=== PATIENT | male | born 1995 | race African-American/Black ===

== ENCOUNTER 2018-01-25 19:35 | Emergency (ER) | payer BC, OTHER ==
[~2018-01-25] VITALS: Ht 185.4 cm; Wt 158.8 kg
== END 2018-01-25 21:24 | disposition home or self-care (01) ==
LOC: FSED 19:35
DX: S20.211A Contusion of right front wall of thorax, initial encounter (principal); V47.5XXA Car driver injured in collision with fixed or stationary object in traffic accident, initial encounter; Y92.488 Other paved roadways as the place of occurrence of the external cause; I10 Essential (primary) hypertension
CPT/HCPCS: 71101; 99283

== ENCOUNTER 2018-07-13 12:47 | Emergency (ER) | payer OTHER ==
[~2018-07-13] VITALS: Ht 185.4 cm; Wt 158.8 kg
[2018-07-13] MEDS ORDERED: HYDRALAZINE HCL 20 MG/ML VIAL IV STA (13:10)
[2018-07-13 13:50] LABS: BASOPHILS % 0.4 % (0.0-1.0); EOSINOPHILS # (AUTO) 0.1 (0.0-0.4); EOSINOPHILS % 1.3 % (0.0-6.0); HEMATOCRIT 45.8 % (38.2-49.6); HEMOGLOBIN 15.6 g/dL (14.0-18.0); LYMPHOCYTES # (AUTO) 2.2 (1.0-3.2); LYMPHOCYTES % 26.7 % (18.0-39.1); MEAN CORPUSCULAR HEMOGLOBIN 30.1 pg (28-32); MEAN CORPUSCULAR HGB CONC 34.1 g/dL (31-35); MEAN CORPUSCULAR VOLUME 88.4 fL (81-99); MONOCYTES # (AUTO) 0.6 (0.2-0.8); MONOCYTES % 7.5 % (4.4-11.3); NEUTROPHILS # (AUTO) 5.2 (2.1-6.9); NEUTROPHILS % 63.7 % (38.7-80.0); PLATELET COUNT 281 x10e3/uL (140-360); RED BLOOD COUNT 5.18 x10e6/uL (4.3-5.7); RED CELL DISTRIBUTION WIDTH 12.9 % (11.7-14.4)
[2018-07-13 14:03] LABS: ALANINE AMINOTRANSFERASE 18 IU/L (0-55); ALBUMIN 4.5 g/dL (3.5-5.0); ALBUMIN/GLOBULIN RATIO 1.7 (0.8-2.0); ALKALINE PHOSPHATASE 54 IU/L (40-150); ANION GAP 15.2 mmol/L (8-16); BLOOD UREA NITROGEN 14 mg/dL (7-26); BUN/CREATININE RATIO 11 (6-25); CALCIUM 9.6 mg/dL (8.4-10.2); CARBON DIOXIDE 25 mmol/L (22-29); CHLORIDE 100 mmol/L (98-107); CREATINE KINASE 308 IU/L (30-200); CREATININE, SERUM 1.25 mg/dL (0.72-1.25); EST GLOMERULAR FILTRATION RATE > 60 ML/MIN (60-); GLUCOSE 90 mg/dL (74-118); POTASSIUM 4.2 mmol/L (3.5-5.1); SODIUM 136 mmol/L (136-145)
[2018-07-13] MEDS ORDERED: HYDROCHLOROTHIA25 MG PO (14:24)
--- NOTE | 2018-07-13 15:02 | Diagnostic Imaging Report ---
Examination: Single AP view of the chest. COMPARISON: None. INDICATION: Chest pain DISCUSSION: Lines/tubes: None. Lungs: The lungs are well inflated and clear. There is no evidence of pneumonia or pulmonary edema. Pleura: There is no pleural effusion or pneumothorax. Heart and mediastinum: The heart and the mediastinum are unremarkable for portable, AP technique. Bones and soft tissues: No acute bony abnormalities. IMPRESSION: 1. No acute cardiopulmonary abnormalities. Signed by: Dr. Washington Monroe M.D. on 07/13/2018 2:58 PM
[2018-07-13 15:12] VITALS: BP 123/90
== END 2018-07-13 15:25 | disposition home or self-care (01) ==
LOC: ER 12:47
DX: R07.89 Other chest pain (principal)
CPT/HCPCS: 36415; 71045; 80053; 82550; 82553; 84484; 85025; 93005; 99284; J0360

== ENCOUNTER 2019-06-19 16:51 | Emergency (ER) | payer SELFPAY ==
[~2019-06-19] VITALS: Ht 185.4 cm; Wt 158.8 kg
[~2019-06-19 16:51] MED LIST: HYDROCHLOROTHIA25 MG PO
[2019-06-19 18:02] LABS: BASOPHILS % 0.1 % (0.0-1.0); EOSINOPHILS # (AUTO) 0.2 (0.0-0.4); EOSINOPHILS % 2.1 % (0.0-6.0); HEMATOCRIT 46.8 % (38.2-49.6); HEMOGLOBIN 16.2 g/dL (14.0-18.0); LYMPHOCYTES # (AUTO) 2.5 (1.0-3.2); LYMPHOCYTES % 31.9 % (18.0-39.1); MEAN CORPUSCULAR HEMOGLOBIN 30.3 pg (28-32); MEAN CORPUSCULAR HGB CONC 34.6 g/dL (31-35); MEAN CORPUSCULAR VOLUME 87.5 fL (81-99); MONOCYTES # (AUTO) 0.6 (0.2-0.8); MONOCYTES % 7.4 % (4.4-11.3); NEUTROPHILS # (AUTO) 4.6 (2.1-6.9); NEUTROPHILS % 58.2 % (38.7-80.0); PLATELET COUNT 265 x10e3/uL (140-360); RED BLOOD COUNT 5.35 x10e6/uL (4.3-5.7); RED CELL DISTRIBUTION WIDTH 12.6 % (11.7-14.4)
[2019-06-19 18:13] LABS: ALANINE AMINOTRANSFERASE 21 IU/L (0-55); ALBUMIN 4.4 g/dL (3.5-5.0); ALBUMIN/GLOBULIN RATIO 1.4 (0.8-2.0); ALKALINE PHOSPHATASE 51 IU/L (40-150); ANION GAP 15.1 mmol/L (8-16); BLOOD UREA NITROGEN 14 mg/dL (7-26); BUN/CREATININE RATIO 11 (6-25); CALCIUM 9.9 mg/dL (8.4-10.2); CARBON DIOXIDE 24 mmol/L (22-29); CHLORIDE 102 mmol/L (98-107); CREATINE KINASE 416 IU/L (30-200); CREATININE, SERUM 1.23 mg/dL (0.72-1.25); EST GLOMERULAR FILTRATION RATE > 60 ML/MIN (60-); GLUCOSE 96 mg/dL (74-118); POTASSIUM 4.1 mmol/L (3.5-5.1); SODIUM 137 mmol/L (136-145)
[2019-06-19] MEDS ORDERED: LISINOPRIL 20 MG TAB PO NR (18:30)
--- NOTE | 2019-06-19 19:09 | Diagnostic Imaging Report ---
EXAMINATION: CHEST 2 VIEWS INDICATION: ^HTN ^[id number] ^[id number] COMPARISON: 07/13/2018. FINDINGS: TUBES and LINES: None. LUNGS: Lungs are well inflated. Lungs are clear. There is no evidence of pneumonia or pulmonary edema. PLEURA: No pleural effusion or pneumothorax. HEART AND MEDIASTINUM: The cardiomediastinal silhouette is unremarkable. BONES AND SOFT TISSUES: No acute osseous lesion. UPPER ABDOMEN: No free air under the diaphragm. IMPRESSION: No acute thoracic abnormality. Signed by: Dr. Jammie Pepper M.D. on 06/19/2019 7:06 PM
[2019-06-19 19:41] LABS: CLARITY,URINE SL CLOUDY (CLEAR); COLOR,URINE YELLOW (YELLOW)
[2019-06-19 19:42] LABS: BILIRUBIN,URINE NEGATIVE (NEGATIVE); KETONES,URINE NEGATIVE (NEGATIVE); LEUKOCYTE ESTERASE ,URINE NEGATIVE (NEGATIVE); NITRITE,URINE NEGATIVE (NEGATIVE); PROTEIN,URINE DIPSTICK NEGATIVE (NEGATIVE); URINE UROBILINOGEN 0.2 mg/dL (0.2 - 1)
[2019-06-19 20:06] LABS: BACTERIA,URINE FEW /HPF
[2019-06-19 20:07] LABS: AMORPHOUS SEDIMENT,URINE MODERATE (FEW); EPITHELIAL CELLS,URINE FEW /LPF; HYALINE CASTS 0-1 (0-1)
[2019-06-19 20:26] VITALS: BP 159/105
--- OUTSIDE RECORDS SUMMARY | 2019-06-22 13:48 | XMS REPORT ---
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 Allergies, Adverse Reactions, Alerts This patient has no known allergies or adverse reactions. Medications This patient has no known medications. Results Test Description Test Time Test Comments Text Results Atomic Results Result Comments CHEST 2 VIEWS 2019-06-19 18:44:00 [facility] [address] [address] Patient Name: GEOFF HUNT MR #: [id number] : 1995 Age/Sex: 24/M Req #: [id number] [facility] Physician: Ordered by: ANTONY ROMO MD, MD Report #: [id number] Location: ER Room/Bed: Procedure: [id number] DX/CHEST 2 VIEWS Exam Date: 06/19/19 Exam Time: 1835 REPORT STATUS: Signed EXAMINATION: CHEST 2 VIEWS INDICATION: HTN [id number] COMPARISON: 07/13/2018. FINDINGS: TUBES and LINES: None. LUNGS: Lungs are well inflated. Lungs are clear. There is no evidence of pneumonia or pulmonary edema. PLEURA: No pleural effusion or pneumothorax. HEART AND MEDIASTINUM: The cardiomediastinal silhouette is unremarkable. BONES AND SOFT TISSUES: No acute osseous lesion. UPPER ABDOMEN: No free air under the diaphragm. IMPRESSION: No acute thoracic abnormality. Signed by: Dr. Jammie Doss M.D. on 06/19/2019 7:06 PM Dictated By: SHIRLEY DOSS MD, MD 05 Transcribed By: JUAN on 06/19/191905 COPY TO: ANTONY ROMO CHEST SINGLE (PORTABLE) 2018-07-13 14:56:[address] [address] Patient Name: GEOFF HUNT MR #: [id number] : 1995 Age/Sex: 23/M Req #: [id number] Adm Physician: Ordered by: VITALIY MAGDALENO MD Report #: [id number] Location: ER Room/Bed: Procedure: [id number] DX/CHEST SINGLE (PORTABLE) Exam Date: Exam Time: REPORT STATUS: Signed Examination: Single AP view of the chest. COMPARISON: N one. INDICATION: Chest pain DISCUSSION: Lines/tubes: None. Lungs: The lungs are well inflated and clear. There is no evidence of pneumonia or pulmonary edema. Pleura: There is no pleural effusion or pneumothorax. Heart and mediastinum: The heart and the mediastinum are unremarkable for portable, AP technique. Bones and soft tissues: No acute bony abnormalities. IMPRESSION: 1. No acute cardiopulmonary abnormalities. Signed by: Dr. Lakisha Ignacio M.D. on 07/13/2018 2:58 PM Dictated By: LAKISHA IGNACIO MD [id number] Transcribed By: JUAN on 07/13/18 145 COPY TO: VITALIY MAGDALENO MD
== END 2019-06-19 20:33 | disposition home or self-care (01) ==
LOC: ER 16:51
DX: I10 Essential (primary) hypertension (principal)
CPT/HCPCS: 36415; 71046; 80053; 81001; 82550; 82553; 84484; 85025; 93005; 99284

== ENCOUNTER 2020-01-18 09:18 | Emergency (ER) | payer BC, OTHER ==
[~2020-01-18] VITALS: Ht 185.4 cm; Wt 161.5 kg
[2020-01-18] MEDS ORDERED: CLONIDINE HCL 0.1 MG TAB PO ONE (09:45)
[2020-01-18] MEDS ORDERED: HYDRALAZINE HCL 20 MG/ML VIAL IV STA (11:06)
--- NOTE | 2020-01-18 11:22 | Emergency Department Note ---
History of Present Illnes History of Present Illness Chief Complaint: Hypertension History of Present Illness This is a 24 year old male Chief Complaint Comment pt seen by PCP this AM and sent to ER for high BP, pt denies CP<SOB, states he ran out of BP meds 5 years ago and never went back to PCP for more, . Historian: Patient Arrival Mode: Car Onset (how long ago): day(s) (2) Location: ALL OVER Quality: WEAKNESS Radiation: Denies non-radiation, Denies back, Denies neck, Denies extremity, Denies abdomen, Denies periumbilical, Denies flank, Denies proximal, Denies distal, Denies other Severity: moderate Onset quality: gradual Duration (how long): day(s) (2) Timing of current episode: intermittent Progression: waxing and waning Chronicity: new Context: Denies recent illness, Denies recent surgery, Denies recent immobilization, Denies recent travel, Denies trauma/injury, Denies new medications, Denies hx of DVT/PE, Denies non-compliance w/ medications, Denies other Relieving factors: none Exacerbating factors: none Associated symptoms: Denies denies other symptoms, Denies confusion, Denies chest pain, Denies cough, Denies diaphoresis, Denies fever/chills, Denies headaches, Denies loss of appetite, Denies malaise, Denies nausea/vomiting, Denies rash, Denies seizure, Denies shortness of breath, Denies syncope, Denies weakness, Denies other Treatments prior to arrival: none Past Medical/Family History Physician Review I have reviewed the patient's past medical and family history. Any updates have been documented here. Past Medical History Recent Fever: No Clinical Suspicion of Infectio: No New/Unexplained Change in Ment: No Past Medical History: Hypertension Other Medical History: UNTREATED (PER PT) HTN Past Surgical History: None Social History Smoking Cessation: Never Smoker Counseling Performed: No Alcohol Use: Occasional Any Illegal Drug Use: No Physically hurt or threatened: No Other Last Tetanus: UTD Any Pre-Existing Lines (PICC,: No Review of Systems Review of Systems Constitutional: Reports no symptoms EENTM: Reports no symptoms Cardiovascular: Reports no symptoms Respiratory: Reports no symptoms Gastrointestinal: Reports no symptoms Genitourinary: Reports no symptoms Musculoskeletal: Reports no symptoms Integumentary: Reports no symptoms Neurological: Reports no symptoms Psychological: Reports no symptoms Endocrine: Reports no symptoms Hematological/Lymphatic: Reports no symptoms Physical Exam Related Data Allergies: Coded Allergies: No Known Allergies (Unverified , 01/25/18) Triage Vital Signs Vital Signs Date Time Temp Pulse Resp B/P (MAP) Pulse Ox O2 Delivery O2 Flow Rate FiO2 01/18/20 09:25 99.0 95 18 213/135 99 Vital signs reviewed: Yes Physical Exam CONSTITUTIONAL Constitutional: Present well-developed, Present well-nourished HENT HENT: Present normocephalic, Present atraumatic, Present oropharynx clear/moist, Present nose normal HENT L/R: Present left ext ear normal, Present right ext ear normal EYES Eyes: Reports PERRL, Reports conjunctivae normal NECK Neck: Present ROM normal PULMONARY Pulmonary: Present effort normal, Present breath sounds normal CARDIOVASCULAR Cardiovascular: Present regular rhythm, Present heart sounds normal, Present capillary refill normal, Present normal rate GASTROINTESTINAL Abdominal: Present soft, Present nontender, Present bowel sounds normal GENITOURINARY Genitourinary: Present exam deferred SKIN Skin: Present warm, Present dry MUSCULOSKELETAL Musculoskeletal: Present ROM normal NEUROLOGICAL Neurological: Present alert, Present oriented x 3, Present no gross motor or sensory deficits PSYCHOLOGICAL Psychological: Present mood/affect normal, Present judgement normal Assessment & Plan Medical Decision Making MDM HYPERTENSION WEAKNESS Reassessment Reassessment time: 11:20 Reassessment BETTER Assessment & Plan Final Impression: (1) Hypertensive crisis Depart Disposition: HOME, SELF-CARE Last Vital Signs Date Time Temp Pulse Resp B/P (MAP) Pulse Ox O2 Delivery O2 Flow Rate FiO2 01/18/20 11:11 167/112 01/18/20 09:45 89 18 99 01/18/20 09:25 99.0 Home Meds Active Scripts Hydrochlorothiazide (HYDROCHLOROTHIAZIDE) 25 Mg Tablet, 25 MG PO DAILY for 30 Days, #30 TAB Prov:VITALIY WATSON DO 07/13/18 Medications in the ED Clonidine HCl 0.1 mg ONCE ONCE PO Last administered on 01/18/20at 10:04; Admin Dose 0.1 MG; Start 01/18/20 at 09:45; Stop 01/18/20 at 10:06; Status DC Hydralazine HCl 10 mg NOW STAT IV Last administered on 01/18/20at 11:11; Admin Dose 10 MG; Start 01/18/20 at 11:06; Stop 01/18/20 at 11:08; Status DC KERI HOWARD MD Jan 18, 2020 11:22
[2020-01-18] MEDS ORDERED: LISINOPRIL10 MG PO (11:23)
[2020-01-18 11:45] VITALS: BP 151/101
== END 2020-01-18 11:47 | disposition home or self-care (01) ==
LOC: FSED 09:31
DX: I16.9 Hypertensive crisis, unspecified (principal); I10 Essential (primary) hypertension; R53.1 Weakness
CPT/HCPCS: 80048; 80076; 85025; 99283; J0360

== ENCOUNTER 2020-04-02 22:50 | Emergency (ER) | payer BC ==
[~2020-04-02] VITALS: Ht 185.4 cm; Wt 161.5 kg
[~2020-04-02 22:50] MED LIST changes: +LISINOPRIL10 MG PO
[2020-04-02] MEDS ORDERED: ALBUTEROL SULF 0.083% NEB SOLN 3 ML NEB NEB STA (22:51)
[2020-04-02] MEDS ORDERED: METHYLPREDNISOLONE SOD SUCC 125 MG/2ML VIAL IV ONE (23:00)
[2020-04-02] MEDS ORDERED: IPRATROPIUM BROMIDE 0.02% 2.5 ML NEB NEB ONE (23:00)
[2020-04-02 23:03] LABS: BASOPHILS % 0.3 % (0.0-1.0); EOSINOPHILS # (AUTO) 0.5 (0.0-0.4); EOSINOPHILS % 3.8 % (0.0-6.0); HEMATOCRIT 42.6 % (38.2-49.6); HEMOGLOBIN 14.2 g/dL (14.0-18.0); LYMPHOCYTES # (AUTO) 2.6 (1.0-3.2); LYMPHOCYTES % 19.7 % (18.0-39.1); MEAN CORPUSCULAR HEMOGLOBIN 29.3 pg (28-32); MEAN CORPUSCULAR HGB CONC 33.3 g/dL (31-35); MEAN CORPUSCULAR VOLUME 87.8 fL (81-99); MONOCYTES # (AUTO) 0.9 (0.2-0.8); NEUTROPHILS # (AUTO) 9.2 (2.1-6.9); NEUTROPHILS % 68.7 % (38.7-80.0); PLATELET COUNT 295 x10e3/uL (140-360); RED BLOOD COUNT 4.85 x10e6/uL (4.3-5.7); RED CELL DISTRIBUTION WIDTH 13.2 % (11.7-14.4)
[2020-04-02] MEDS ORDERED: ONDANSETRON HCL INJ 2MG/ML 2ML 2 MG/ML VIAL IV STA (23:05)
[2020-04-02] MEDS ORDERED: ALBUTEROL SULF 0.083% NEB SOLN 3 ML NEB ONE (23:06)
[2020-04-02] MEDS ORDERED: IPRATROPIUM BROMIDE 0.02% 2.5 ML NEB ONE (23:06)
[2020-04-02] MEDS ORDERED: METHYLPREDNISOLONE SOD SUCC 125 MG/2ML VIAL ONE (23:07)
[2020-04-02 23:20] LABS: ANION GAP 17.2 mmol/L (8-16); BLOOD UREA NITROGEN 11 mg/dL (7-26); BUN/CREATININE RATIO 8 (6-25); CALCIUM 9.3 mg/dL (8.4-10.2); CARBON DIOXIDE 26 mmol/L (22-29); CHLORIDE 102 mmol/L (98-107); CREATININE, SERUM 1.34 mg/dL (0.72-1.25); EST GLOMERULAR FILTRATION RATE > 60 ML/MIN (60-); GLUCOSE 94 mg/dL (74-118); POTASSIUM 4.2 mmol/L (3.5-5.1); SODIUM 141 mmol/L (136-145)
[2020-04-02 23:28] LABS: CREATINE KINASE MB 2.4 ng/mL (0-5.0)
[2020-04-03] MEDS ORDERED: CLONIDINE HCL 0.1 MG TAB PO ONE (00:15)
[2020-04-03 01:16] VITALS: BP 166/110
== END 2020-04-03 01:21 | disposition home or self-care (01) ==
LOC: ER 23:04
DX: J45.909 Unspecified asthma, uncomplicated (principal); R05 Cough; I16.0 Hypertensive urgency; R06.02 Shortness of breath; I10 Essential (primary) hypertension
CPT/HCPCS: 36415; 71045; 80048; 82550; 82553; 83880; 84484; 85025; 85379; 94640; 99284; J2405; J2930; 93005

== ENCOUNTER 2020-11-28 01:01 | Inpatient (IN) | payer BC ==
[~2020-11-28] VITALS: Ht 185.4 cm; Wt 158.8 kg
[2020-11-28] MEDS ORDERED: METOPROLOL TARTRATE INJ 1 MG/ML VIAL IV ONE (02:00)
[2020-11-28] MEDS ORDERED: METOPROLOL TARTRATE INJ 1 MG/ML VIAL ONE (02:01)
[2020-11-28 02:20] LABS: BASOPHILS % 0.4 % (0.0-1.0); EOSINOPHILS # (AUTO) 0.4 (0.0-0.4); EOSINOPHILS % 4.4 % (0.0-6.0); HEMATOCRIT 42.7 % (38.2-49.6); HEMOGLOBIN 14.5 g/dL (14.0-18.0); LYMPHOCYTES # (AUTO) 1.7 (1.0-3.2); LYMPHOCYTES % 17.2 % (18.0-39.1); MEAN CORPUSCULAR HEMOGLOBIN 30.1 pg (28-32); MEAN CORPUSCULAR VOLUME 88.8 fL (81-99); MONOCYTES # (AUTO) 0.7 (0.2-0.8); MONOCYTES % 6.8 % (4.4-11.3); NEUTROPHILS # (AUTO) 6.9 (2.1-6.9); NEUTROPHILS % 70.9 % (38.7-80.0); PLATELET COUNT 262 x10e3/uL (140-360); RED BLOOD COUNT 4.81 x10e6/uL (4.3-5.7); RED CELL DISTRIBUTION WIDTH 13.2 % (11.7-14.4)
[2020-11-28 02:44] LABS: ALANINE AMINOTRANSFERASE 20 IU/L (0-55); ALBUMIN 4.2 g/dL (3.5-5.0); ALBUMIN/GLOBULIN RATIO 1.2 (0.8-2.0); ALKALINE PHOSPHATASE 60 IU/L (40-150); ANION GAP 18.9 mmol/L (8-16); BLOOD UREA NITROGEN 16 mg/dL (7-26); BUN/CREATININE RATIO 11 (6-25); CARBON DIOXIDE 20 mmol/L (22-29); CHLORIDE 105 mmol/L (98-107); EST GLOMERULAR FILTRATION RATE > 60 ML/MIN (60-); GLUCOSE 104 mg/dL (74-118); POTASSIUM 3.9 mmol/L (3.5-5.1); SODIUM 140 mmol/L (136-145)
[2020-11-28] MEDS ORDERED: DILTIAZEM HCL 5 MG/ML 5 ML VIAL IV STA (02:50)
[2020-11-28 02:51] LABS: CREATINE KINASE 324 IU/L (30-200)
[2020-11-28 02:52] LABS: CLARITY,URINE CLEAR (CLEAR); COLOR,URINE YELLOW (YELLOW); LEUKOCYTE ESTERASE ,URINE NEGATIVE (NEGATIVE); NITRITE,URINE NEGATIVE (NEGATIVE)
[2020-11-28 02:53] LABS: AMPHETAMINES SCREEN,URINE NEGATIVE (NEGATIVE); BENZODIAZEPINES SCREEN,URINE NEGATIVE (NEGATIVE); KETONES,URINE NEGATIVE (NEGATIVE); PHENCYCLIDINE SCREEN,URINE NEGATIVE (NEGATIVE); PROTEIN,URINE DIPSTICK >=300 (NEGATIVE); URINE UROBILINOGEN 0.2 mg/dL (0.2 - 1)
[2020-11-28 03:00] LABS: BACTERIA,URINE FEW /HPF; EPITHELIAL CELLS,URINE RARE /LPF; RBC,URINE 0-5 /HPF (0-5)
[2020-11-28] MEDS ORDERED: ASPIRIN 81 MG CHEW TAB PO ONE (04:30)
[2020-11-28] MEDS ORDERED: SODIUM CHLORIDE 0.9% 1000ML 1,000 ML IV STA (05:01)
[2020-11-28] MEDS: METOPROLOL TARTRATE 25 MG TAB PO SCH ×2 (05:05→17:19)
[2020-11-28] MEDS ORDERED: SODIUM CHLORIDE 0.9% 1000ML 1,000 ML ONE (05:11)
[2020-11-28] MEDS: CLONIDINE HCL 0.1 MG TAB PO PRN ×3 (08:42→21:04)
[2020-11-28 11:47] LABS: CREATINE KINASE MB 2.3 ng/mL (0-5.0)
[2020-11-28 13:38] VITALS: BP 179/131
[2020-11-28] MEDS ORDERED: AMLODIPINE BESY10 MG PO (15:11)
[2020-11-28 16:38] VITALS: BP 166/116
[2020-11-28 16:39] VITALS: BP 171/116
[2020-11-28] MEDS: LOSARTAN POTASSIUM 100 MG TAB PO SCH (18:36)
[2020-11-28] MEDS: HYDRALAZINE HCL 20 MG/ML VIAL IV PRN (18:36)
[2020-11-28] MEDS: SODIUM CHLORIDE 0.9% 1000ML 1,000 ML IV SCH (18:59)
[2020-11-28 20:00] VITALS: BP 160/111
[2020-11-28 20:56] LABS: CREATINE KINASE MB 1.4 ng/mL (0-5.0)
[2020-11-28 21:00] VITALS: BP 160/111
[2020-11-28 21:28] LABS: FREE THYROXINE INDEX 2.5394 (1.4-3.8); THYROID STIMULATING HORMONE 0.786 uIU/mL (0.350-4.940)
[2020-11-29] VITALS (8 sets, daily range): BP systolic 146–175; BP diastolic 81–122
[2020-11-29] MEDS: HYDRALAZINE HCL 20 MG/ML VIAL IV PRN ×2 (00:33→13:45)
[2020-11-29 04:59] LABS: BASOPHILS % 0.4 % (0.0-1.0); EOSINOPHILS # (AUTO) 0.3 (0.0-0.4); EOSINOPHILS % 3.4 % (0.0-6.0); HEMOGLOBIN 14.1 g/dL (14.0-18.0); LYMPHOCYTES # (AUTO) 1.9 (1.0-3.2); LYMPHOCYTES % 22.5 % (18.0-39.1); MEAN CORPUSCULAR HGB CONC 32.8 g/dL (31-35); MEAN CORPUSCULAR VOLUME 91.5 fL (81-99); MONOCYTES # (AUTO) 0.6 (0.2-0.8); MONOCYTES % 7.4 % (4.4-11.3); NEUTROPHILS # (AUTO) 5.6 (2.1-6.9); NEUTROPHILS % 65.9 % (38.7-80.0); PLATELET COUNT 216 x10e3/uL (140-360); RED CELL DISTRIBUTION WIDTH 13.3 % (11.7-14.4)
[2020-11-29 05:23] LABS: ALANINE AMINOTRANSFERASE 18 IU/L (0-55); ALBUMIN 3.6 g/dL (3.5-5.0); ALBUMIN/GLOBULIN RATIO 1.2 (0.8-2.0); ALKALINE PHOSPHATASE 44 IU/L (40-150); ANION GAP 12.1 mmol/L (8-16); BLOOD UREA NITROGEN 21 mg/dL (7-26); BUN/CREATININE RATIO 17 (6-25); CALCIUM 8.5 mg/dL (8.4-10.2); CARBON DIOXIDE 23 mmol/L (22-29); CHLORIDE 107 mmol/L (98-107); CREATININE, SERUM 1.24 mg/dL (0.72-1.25); EST GLOMERULAR FILTRATION RATE > 60 ML/MIN (60-); GLUCOSE 92 mg/dL (74-118); MAGNESIUM 1.8 MG/DL (1.3-2.1); POTASSIUM 4.1 mmol/L (3.5-5.1); SODIUM 138 mmol/L (136-145)
[2020-11-29] MEDS: SODIUM CHLORIDE 0.9% 1000ML 1,000 ML IV SCH ×2 (08:25→21:11)
[2020-11-29] MEDS: LOSARTAN POTASSIUM 100 MG TAB PO SCH (08:28)
[2020-11-29] MEDS: METOPROLOL TARTRATE 25 MG TAB PO SCH (08:28)
[2020-11-29] MEDS: CLONIDINE HCL 0.1 MG TAB PO PRN (11:21)
[2020-11-29] MEDS: CHLORTHALIDONE 25 MG TAB PO SCH (12:08)
[2020-11-29] MEDS: METOPROLOL SUCCINATE 50 MG TAB XL PO SCH (21:21)
[2020-11-30] VITALS (8 sets, daily range): BP systolic 151–179; BP diastolic 95–116
[2020-11-30] MEDS: LOSARTAN POTASSIUM 100 MG TAB PO SCH (08:10)
[2020-11-30] MEDS: CHLORTHALIDONE 25 MG TAB PO SCH (08:10)
[2020-11-30] MEDS: AMLODIPINE BESYLATE 10 MG TAB PO SCH (10:48)
[2020-11-30] MEDS: SODIUM CHLORIDE 0.9% 1000ML 1,000 ML IV SCH (10:48)
[2020-11-30] MEDS: METOPROLOL SUCCINATE 50 MG TAB XL PO SCH (21:15)
[2020-12-01] VITALS (7 sets, daily range): BP systolic 138–165; BP diastolic 90–127
[2020-12-01] MEDS: HYDRALAZINE HCL 20 MG/ML VIAL IV PRN (00:18)
[2020-12-01] MEDS: CHLORTHALIDONE 25 MG TAB PO SCH (10:00)
[2020-12-01] MEDS: AMLODIPINE BESYLATE 10 MG TAB PO SCH (10:00)
[2020-12-01] MEDS: LOSARTAN POTASSIUM 100 MG TAB PO SCH (10:00)
[2020-12-01] MEDS: METOPROLOL SUCCINATE 50 MG TAB XL PO SCH (20:21)
[2020-12-02] VITALS: BP 140/93
[2020-12-02 04:00] VITALS: BP 129/93
[2020-12-02 07:22] LABS: ANION GAP 16.4 mmol/L (8-16); BLOOD UREA NITROGEN 22 mg/dL (7-26); BUN/CREATININE RATIO 15 (6-25); CALCIUM 9.5 mg/dL (8.4-10.2); CARBON DIOXIDE 21 mmol/L (22-29); CHLORIDE 104 mmol/L (98-107); CREATININE, SERUM 1.42 mg/dL (0.72-1.25); EST GLOMERULAR FILTRATION RATE > 60 ML/MIN (60-); GLUCOSE 91 mg/dL (74-118); POTASSIUM 4.4 mmol/L (3.5-5.1); SODIUM 137 mmol/L (136-145)
[2020-12-02 07:49] VITALS: BP 155/111
[2020-12-02 08:03] VITALS: BP 155/111
[2020-12-02] MEDS: LOSARTAN POTASSIUM 100 MG TAB PO SCH (09:12)
[2020-12-02] MEDS: AMLODIPINE BESYLATE 10 MG TAB PO SCH (09:12)
[2020-12-02] MEDS: CHLORTHALIDONE 25 MG TAB PO SCH (09:12)
[2020-12-02] MEDS ORDERED: METOPROLOL SUCC50 MG PO (09:20)
[2020-12-02] MEDS ORDERED: HYDRALAZINE HCL25 MG PO (09:21)
[2020-12-02] MEDS ORDERED: LOSARTAN POTAS100 MG PO (09:21)
[2020-12-02] MEDS ORDERED: HYGROTON25 MG PO (09:21)
== END 2020-12-02 10:38 | disposition home or self-care (01) | DRG 305 ==
LOC: ER 02:42 → ERHOLD 04:28 → MED/SURG 12:53
PROVIDERS: ADMIT Family Medicine; ATTEND Family Medicine
DX: I16.1 Hypertensive emergency (principal); I67.4 Hypertensive encephalopathy; M62.82 Rhabdomyolysis; N17.9 Acute kidney failure, unspecified; E66.2 Morbid (severe) obesity with alveolar hypoventilation; Z68.42 Body mass index [BMI] 45.0-49.9, adult; R07.89 Other chest pain; R51.9 Headache, unspecified; Z20.822 Contact with and (suspected) exposure to COVID-19
CPT/HCPCS: 36415; 70450; 71045; 76770; 80048; 80053; 80061; 80307; 81001; 82550; 82553; 83036; 83735; 83835; 84436; 84443; 84479; 84484; 84585; 85025; 85379; 93005; 93306; 93976; 99284; J0360; J7030; U0002

== ENCOUNTER 2023-10-26 12:14 | Inpatient (IN) | payer BC, OTHER ==
[~2023-10-26] VITALS: Ht 185.4 cm; Wt 169.6 kg
[~2023-10-26 12:14] MED LIST changes: +AMLODIPINE BESY10 MG PO; +HYDRALAZINE HCL25 MG PO; +HYGROTON25 MG PO; +LOSARTAN POTAS100 MG PO; +METOPROLOL SUCC50 MG PO
[2023-10-26] MEDS ORDERED: SODIUM CHLORIDE FLUSH 10 ML SYR IV PRN (13:30)
[2023-10-26 14:29] LABS: BASOPHILS % 0.3 % (0.0-1.0); EOSINOPHILS # (AUTO) 0.1 (0.0-0.4); EOSINOPHILS % 1.5 % (0.0-6.0); HEMATOCRIT 45.4 % (38.2-49.6); HEMOGLOBIN 15.1 g/dL (14.0-18.0); LYMPHOCYTES # (AUTO) 1.6 (1.0-3.2); LYMPHOCYTES % 18.5 % (18.0-39.1); MEAN CORPUSCULAR HGB CONC 33.3 g/dL (31-35); MEAN CORPUSCULAR VOLUME 87.1 fL (81-99); MONOCYTES # (AUTO) 0.6 (0.2-0.8); MONOCYTES % 7.5 % (4.4-11.3); NEUTROPHILS # (AUTO) 6.2 (2.1-6.9); NEUTROPHILS % 71.9 % (38.7-80.0); PLATELET COUNT 278 x10e3/uL (140-360); RED BLOOD COUNT 5.21 x10e6/uL (4.3-5.7); RED CELL DISTRIBUTION WIDTH 13.6 % (11.7-14.4); WHITE BLOOD COUNT 8.58 x10e3/uL (4.8-10.8)
[2023-10-26 14:49] LABS: ALBUMIN 3.9 g/dL (3.5-5.0); BILIRUBIN,TOTAL 1.1 mg/dL (0.2-1.2); CALCIUM 9.5 mg/dL (8.4-10.2); CREATININE, SERUM 1.61 mg/dL (0.72-1.25); TOTAL PROTEIN 7.8 g/dL (6.5-8.1)
[2023-10-26 14:55] LABS: TROPONIN I 0.124 ng/mL (0-0.300)
[2023-10-26] MEDS: LABETALOL HCL 5 MG/ML 20ML VIAL IV STA (14:55)
[2023-10-26] MEDS ORDERED: ONDANSETRON HCL INJ 2MG/ML 2ML 2 MG/ML VIAL IV PRN (15:30)
[2023-10-26] MEDS ORDERED: SODIUM CHLORIDE FLUSH 10 ML SYR INJ PRN (15:30)
[2023-10-26] MEDS: FUROSEMIDE INJ 10 MG/ML 4 ML VIAL IV ONE (15:47)
[2023-10-26 19:30] LABS: FREE THYROXINE INDEX 2.2313 (1.4-3.8); T3 UPTAKE 42.18 % (22.5-37.0); T4 (THYROXINE) 5.29 ug/dL (4.5-10.9); THYROID STIMULATING HORMONE 1.39 uIU/mL (0.350-4.940)
[2023-10-26 20:50] VITALS: BP 174/116; PULSE 99; RESP 21; TEMP 97.8; O2SAT 97
[2023-10-26] MEDS ORDERED: OLMESARTAN-HCT1 EAC2 PO (21:48)
[2023-10-26 21:49] VITALS: BP 174/116; PULSE 99; RESP 21; TEMP 97.8; O2SAT 97
[2023-10-26] MEDS: METOPROLOL SUCCINATE 50 MG TAB XL PO ONE (22:07)
[2023-10-26] MEDS ORDERED: METOPROLOL SUCCINATE 50 MG TAB XL ONE (22:09)
[2023-10-26 23:14] LABS: TROPONIN I 0.098 ng/mL (0-0.300)
[2023-10-27] VITALS (7 sets, daily range): BP systolic 143–163; BP diastolic 105–125; PULSE 95–108; RESP 17–21; TEMP 97.5–98.2; O2SAT 96–99
[2023-10-27 06:17] LABS: BASOPHILS % 0.4 % (0.0-1.0); EOSINOPHILS # (AUTO) 0.1 (0.0-0.4); EOSINOPHILS % 1.2 % (0.0-6.0); HEMATOCRIT 41.5 % (38.2-49.6); HEMOGLOBIN 13.9 g/dL (14.0-18.0); LYMPHOCYTES # (AUTO) 1.9 (1.0-3.2); LYMPHOCYTES % 22.8 % (18.0-39.1); MEAN CORPUSCULAR HEMOGLOBIN 28.7 pg (28-32); MEAN CORPUSCULAR HGB CONC 33.5 g/dL (31-35); MEAN CORPUSCULAR VOLUME 85.7 fL (81-99); MONOCYTES # (AUTO) 0.7 (0.2-0.8); MONOCYTES % 8.7 % (4.4-11.3); NEUTROPHILS # (AUTO) 5.5 (2.1-6.9); NEUTROPHILS % 66.7 % (38.7-80.0); PLATELET COUNT 233 x10e3/uL (140-360); RED BLOOD COUNT 4.84 x10e6/uL (4.3-5.7); RED CELL DISTRIBUTION WIDTH 13.6 % (11.7-14.4)
[2023-10-27] MEDS ORDERED: FUROSEMIDE INJ 10 MG/ML 4 ML VIAL ONE ×2 (06:39→12:46)
[2023-10-27] MEDS: FUROSEMIDE INJ 10 MG/ML 4 ML VIAL IV ONE (06:41)
[2023-10-27 06:50] LABS: ALBUMIN 3.5 g/dL (3.5-5.0); ALBUMIN/GLOBULIN RATIO 1.1 (0.8-2.0); ANION GAP 16.9 mmol/L (8-16); BILIRUBIN,TOTAL 1.1 mg/dL (0.2-1.2); CALCIUM 8.8 mg/dL (8.4-10.2); CREATININE, SERUM 1.51 mg/dL (0.72-1.25); POTASSIUM 3.9 mmol/L (3.5-5.1); TOTAL PROTEIN 6.8 g/dL (6.5-8.1)
[2023-10-27 07:14] LABS: TROPONIN I 0.099 ng/mL (0-0.300)
[2023-10-27] MEDS ORDERED: METOPROLOL SUCCINATE 50 MG TAB XL ONE (08:28)
[2023-10-27] MEDS ORDERED: OLMESARTAN 20 MG TAB ONE ×2 (08:29→09:31)
[2023-10-27] MEDS ORDERED: HYDROCHLOROTHIAZIDE 25 MG TAB ONE (08:29)
[2023-10-27] MEDS: METOPROLOL SUCCINATE 50 MG TAB XL PO SCH (09:29)
[2023-10-27] MEDS: HYDROCHLOROTHIAZIDE 25 MG TAB PO SCH (09:29)
[2023-10-27] MEDS: OLMESARTAN 20 MG TAB PO SCH (09:30)
[2023-10-27] MEDS: ASPIRIN 81 MG CHEW TAB PO ONE (09:30)
[2023-10-27] MEDS: FUROSEMIDE INJ 10 MG/ML 4 ML VIAL IV SCH (13:54)
[2023-10-27 14:47] LABS: TROPONIN I 0.092 ng/mL (0-0.300)
[2023-10-27] MEDS ORDERED: SACUBITRIL/VALSARTAN 24MG/26MG 1 EA TAB PO ONE (17:20)
[2023-10-27] MEDS: SACUBITRIL/VALSARTAN 24MG/26MG 1 EA TAB PO ONE (17:29)
[2023-10-27] MEDS ORDERED: HYDRALAZINE HCL 20 MG/ML VIAL ONE (21:38)
[2023-10-27] MEDS: HYDRALAZINE HCL 20 MG/ML VIAL IV PRN (22:03)
[2023-10-28 06:15] VITALS: BP 149/102; PULSE 88; RESP 20; TEMP 97.1; O2SAT 96
[2023-10-28 06:20] VITALS: BP 136/84; PULSE 84; RESP 20; TEMP 98; O2SAT 96
[2023-10-28] MEDS ORDERED: FUROSEMIDE INJ 10 MG/ML 4 ML VIAL ONE ×2 (07:23→12:00)
[2023-10-28] MEDS ORDERED: SACUBITRIL/VALSARTAN 24MG/26MG 1 EA TAB PO ONE (07:27)
[2023-10-28] MEDS ORDERED: METOPROLOL SUCCINATE 50 MG TAB XL ONE ×2 (07:28→12:00)
[2023-10-28 08:00] VITALS: BP 167/124; PULSE 90; RESP 17; TEMP 98.1; O2SAT 98
[2023-10-28 08:30] VITALS: BP 167/124; PULSE 90; RESP 17; TEMP 98.1; O2SAT 98
[2023-10-28] MEDS: SACUBITRIL/VALSARTAN 24MG/26MG 1 EA TAB PO SCH (08:38)
[2023-10-28] MEDS ORDERED: ONDANSETRON HCL 4 MG ORAL DISINTEGRATING TAB PO PRN (10:00)
[2023-10-28 11:49] VITALS: BP 165/120; PULSE 93; RESP 17; TEMP 98; O2SAT 100
[2023-10-28] MEDS ORDERED: HYDRALAZINE HCL 20 MG/ML VIAL ONE (11:59)
[2023-10-28] MEDS ORDERED: OLMESARTAN 20 MG TAB ONE (12:00)
[2023-10-28] MEDS ORDERED: HYDROCHLOROTHIAZIDE 25 MG TAB ONE (12:00)
[2023-10-28 16:23] VITALS: BP 129/84; PULSE 89; RESP 18; TEMP 97.4; O2SAT 97
== END 2023-10-28 19:19 | disposition home or self-care (01) | DRG 291 ==
LOC: ER 13:06 → ERHOLD 15:21 → MED/SURG 20:37 → OBSVTOIN 10-28 13:46
PROVIDERS: ADMIT Family Medicine; ATTEND Family Medicine
DX: I13.0 Hypertensive heart and chronic kidney disease with heart failure and stage 1 through stage 4 chronic kidney disease, or unspecified chronic kidney disease (principal); I50.43 Acute on chronic combined systolic (congestive) and diastolic (congestive) heart failure; N17.9 Acute kidney failure, unspecified; Z68.42 Body mass index [BMI] 45.0-49.9, adult; E66.01 Morbid (severe) obesity due to excess calories; N18.9 Chronic kidney disease, unspecified; I16.0 Hypertensive urgency; I42.9 Cardiomyopathy, unspecified; G47.30 Sleep apnea, unspecified; Z11.52 Encounter for screening for COVID-19; Z82.49 Family history of ischemic heart disease and other diseases of the circulatory system
CPT/HCPCS: 36415; 71046; 80053; 82550; 83036; 83880; 84436; 84443; 84479; 84484; 85025; 93005; 93306; 99284; G0378; J0360; J1940; U0002